=== PATIENT | female | born 1965 | race Caucasian/White ===

== ENCOUNTER 2021-08-17 11:09 | Emergency (ER) | payer OTHER, SELFPAY ==
[2021-08-17 11:18] VITALS: BP 102/66; PULSE 63; RESP 18; TEMP 36.4; O2SAT 99
--- NOTE | 2021-08-17 11:54 | ED.DENTAL ---
HPI - Dental/Oral General Chief complaint: Dental/Oral Stated complaint: tooth pain Time Seen by Provider: 08/17/21 11:34 Source: patient and RN notes reviewed Mode of arrival: ambulatory Limitations: no limitations History of Present Illness HPI Narrative: Patient presents today with a 3-day history of right upper tooth pain. States the tooth is loose and infected. She has an appointment with a dentist to follow-up on September 05. She currently rates her pain 8/10, which increases when she bites down. She has been taking Tylenol and occasional ibuprofen. She cannot take any NSAIDs due to history of gastric ulcer. Denies shortness of breath, fever, difficulty swallowing. MD Complaint: tooth pain Related Data Home Medications Medication Instructions Recorded Confirmed alprazolam 0.25 mg PO BID 08/17/21 08/17/21 buspirone 5 mg PO DAILY 08/17/21 08/17/21 citalopram 40 mg PO DAILY 08/17/21 08/17/21 levothyroxine 50 mcg PO DAILY 08/17/21 08/17/21 pantoprazole 40 mg PO DAILY 08/17/21 08/17/21 Allergies Allergy/AdvReac Type Severity Reaction Status Date / Time codeine Allergy Intermediate Hives Verified 08/17/21 11:54 Review of Systems Review of Systems: CONSTITUTIONAL: Denies body aches, fever, chills, or sweats. EYES: Denies visual changes, redness, or discharge. ENT: Denies rhinorrhea, congestion, sore throat, or otalgia.+ Tooth pain CARDIOVASCULAR: Denies chest pain, palpitations, or edema. RESPIRATORY: Denies cough or dyspnea. GASTROINTESTINAL: Denies abdominal pain, nausea, vomiting, or diarrhea. GENITOURINARY: Denies dysuria or hematuria. SKIN: Denies rash, itching, or wounds. MUSCULOSKELETAL: Denies back pain, joint pain, or myalgia. NEUROLOGIC: Denies headache, numbness, tingling, or weakness. PSYCH: Denies depression or anxiety. [facility] Family History Family History Other Family history of malignant neoplasm Family history of type 2 diabetes mellitus Hypertension Comments At time of signature, I have reviewed and agree with nursing past medical, surgical, social and family history unless otherwise noted. Please see nursing chart for further information. There is no relevant family history pertinent to the presenting complaint Exam Narrative: GENERAL: Well-appearing, well-nourished, and in no acute distress. HEAD: Normocephalic, atraumatic. EYES: EOMI. No redness or drainage. Conjunctivae normal. ENT: Mucous membranes pink and moist. Throat normal. Uvula midline.+ Tooth #2 is dark in color with a filling in the center. No obvious periapical abscess. Tender to percussion. No swelling of the face noted. NECK: Normal AROM. CHEST: No respiratory distress. Clear to auscultation. HEART: Regular rate and rhythm. No murmur appreciated. Normal peripheral pulses. EXTREMITIES: Normal range of motion. No edema. SKIN: Warm, dry, no rash. Capillary refill normal. Normal skin turgor. NEURO: No focal deficits. Alert and oriented x3. Gait steady. PSYCH: Normal affect. No signs of depression or anxiety. Course Vital Signs Vital signs: Vital Signs Temperature 97.6 F 08/17/21 11:18 Pulse Rate 63 08/17/21 11:18 Respiratory Rate 18 08/17/21 11:18 Blood Pressure 102/66 08/17/21 11:18 Pulse Oximetry 99 08/17/21 11:18 Temperature 97.6 F 08/17/21 11:18 Pulse Rate 63 08/17/21 11:18 Respiratory Rate 18 08/17/21 11:18 Blood Pressure 102/66 08/17/21 11:18 Pulse Oximetry 99 08/17/21 11:18 Reviewed MDM - Dental/Oral Differential Diagnosis Differential diagnosis: Likely gingival abscess, dental caries, toothache, dental abscess and fracture of tooth Critical Care Time Critical Care Time Critical Care Time: No Discharge Plan Discharge Clinical Impression: Toothache Patient Disposition: Home, Self-Care Condition: Stable Instructions: Antibiotic Form, Dental Abscess (ED) Additional Instructions: Plea
== END 2021-08-17 12:00 | disposition home or self-care (01) ==
PROVIDERS: Emergency Provider Nurse Practitioner; PCP Family Medicine
DX: K08.89 Other specified disorders of teeth and supporting structures (principal); K21.9 Gastro-esophageal reflux disease without esophagitis; Z90.711 Acquired absence of uterus with remaining cervical stump; F41.9 Anxiety disorder, unspecified
CPT/HCPCS: 99203; G0463